=== PATIENT | female | born 1945 | race Caucasian/White ===

== ENCOUNTER 2017-07-29 12:35 | Inpatient (IN) | payer MEDICARE, MEDICAID ==
[~2017-07-29] VITALS: Ht 165.1 cm; Wt 69.0 kg
[~2017-07-29 12:35] MED LIST: ALEN70TA3 PO; FLUT1DIS4 INH; GABA-530 PO; HYDR-569 PO; HYDR12.5 PO; LEVA15HF4 INH; LOSA50TA3 PO; NYSPWD TP; QUET50TA PO; SUMA25TA35 PO
[2017-07-29] MEDS ORDERED: normal saline 1000ML IV soln IVB ONE ×2 (15:35)
[2017-07-29] MEDS ORDERED: famotidine/PF 10 mg/ml inj IV ONE (15:35)
[2017-07-29 16:08] LABS: BASOPHILS % (AUTO) 0 % (0-1); EOSINOPHILS # (AUTO) 0.4 X10'3 (0-0.9); EOSINOPHILS % (AUTO) 1.7 % (0-6); HEMATOCRIT 43.1 % (35.0-45.0); HEMOGLOBIN 14.8 g/dl (12.0-16.0); LYMPHOCYTES # (AUTO) 1.1 X10'3 (1.1-4.8); LYMPHOCYTES % (AUTO) 4.3 % (21-51); MEAN CORPUSCULAR HEMOGLOBIN 30.5 PG (27.0-31.0); MEAN CORPUSCULAR HGB CONC 34.2 % (33.0-36.5); MEAN CORPUSCULAR VOLUME 89.1 FL (78-98); MEAN PLATELET VOLUME 7.2 FL (7.4-10.4); MONOCYTES # (AUTO) 0.3 X10'3 (0-0.9); MONOCYTES % (AUTO) 1.3 % (2-12); NEUTROPHILS # (AUTO) 24.5 X10'3 (1.8-7.7); NEUTROPHILS % (AUTO) 92.7 % (42-75); PLATELET COUNT 380 X10'3 (140-440); RED BLOOD COUNT 4.84 X10'6 (4.20-5.60); RED CELL DISTRIBUTION WIDTH 14.3 % (11.5-14.5)
[2017-07-29 16:14] LABS: WHITE BLOOD COUNT 26.5 X10'3 (4.5-11.0)
[2017-07-29 16:19] LABS: PARTIAL THROMBOPLASTIN TIME 23 SECONDS (22-32); PROTHROMBIN TIME 10.7 SECONDS (9.0-12.0)
[2017-07-29 16:25] LABS: ALANINE AMINOTRANSFERASE 21 U/L (12-78); ALBUMIN 3.7 G/DL (3.4-5.0); ALKALINE PHOSPHATASE 92 IU/L (46-116); ANION GAP 13 (8-16); ASPARTATE AMINO TRANSFERASE 13 U/L (10-37); BILIRUBIN,TOTAL 0.8 MG/DL (0.1-1.0); BLOOD UREA NITROGEN 60 MG/DL (7-18); BUN/CREATININE RATIO 25.2 (6.6-38.0); CALCIUM 9.1 MG/DL (8.5-10.1); CHLORIDE 99 MMOL/L (99-107); CREATININE 2.38 MG/DL (0.40-0.90); GLUCOSE 144 MG/DL (70-104); POTASSIUM 3.9 MMOL/L (3.5-5.1); SODIUM 138 MMOL/L (135-145); TOTAL CARBON DIOXIDE 25.6 MMOL/L (24-32); TOTAL PROTEIN 7.3 G/DL (6.4-8.2); eGFR 20 ML/MIN
[2017-07-29] MEDS ORDERED: metroNIDAZOLE-Flagyl 500mg/NS 100 ML IV ONE (16:30)
[2017-07-29] MEDS ORDERED: levoFLOXACIN-Levaquin 500mg/D5 100 ML IV ONE (16:30)
[2017-07-29 16:43] LABS: PLATELET ESTIMATE NORMAL; TOTAL CELLS COUNTED 100; TOXIC GRANULATION 1+; TOXIC VACUOLATION 1+
[2017-07-29] MEDS ORDERED: LOSA50TA37 PO (17:33)
[2017-07-29] MEDS ORDERED: QUET50TA76 PO (17:33)
[2017-07-29] MEDS ORDERED: PROC-8 PO (17:33)
[2017-07-29] MEDS ORDERED: QUET50TA22 PO (17:33)
[2017-07-29] MEDS ORDERED: ALEN70TA15 PO (17:33)
[2017-07-29] MEDS ORDERED: LOSA100T28 PO (17:33)
[2017-07-29] MEDS ORDERED: acetaminophen 650mg rectal suppository RC PRN (22:15)
[2017-07-29] MEDS ORDERED: mag hydrox/Alum hydrox/simeth 30ml oral suspension PO PRN (22:15)
[2017-07-29] MEDS ORDERED: magnesium hydroxide 30ml (MOM) UD suspension PO PRN (22:15)
[2017-07-29] MEDS ORDERED: non-formulary drug (Levalbuterol Tartrate (Xopenex Hfa) 2 PUFFS) INH SCH (22:15)
[2017-07-29] MEDS ORDERED: non-formulary drug (Alendronate Sodium (Fosamax) 1 TAB) PO SCH (22:15)
[2017-07-29] MEDS ORDERED: diphenhydrAMINE 25mg capsule PO PRN (22:15)
[2017-07-29] MEDS ORDERED: acetaminophen 325mg tablet PO PRN (22:15)
[2017-07-29] MEDS ORDERED: bisacodyl 10mg suppository rectal RC PRN (22:15)
[2017-07-29] MEDS ORDERED: morphine 2 MG/ML inj. syringe IV PRN ×2 (22:15)
[2017-07-29] MEDS ORDERED: diphenhydrAMINE 50 mg/ml inj IV PRN (22:15)
[2017-07-29] MEDS ORDERED: ondansetron/PF 4mg/2ml inj IV PRN (22:15)
[2017-07-29] MEDS ORDERED: albuterol 2.5 MG/3 ML nebule NEB PRN (22:25)
[2017-07-29] MEDS: normal saline 1000ml 1,000 ML IV SCH (22:53)
[2017-07-29] MEDS: nicotine 21mg patch - 24 hr TD SCH (22:54)
[2017-07-29] MEDS: HYDROcodone/acetaminophen 10/325mg tab PO PRN (22:55)
[2017-07-29 23:00] LABS: LIPASE 130 U/L (73-393); MAGNESIUM 2.6 MG/DL (1.5-2.4); PHOSPHORUS 4.5 MG/DL (2.3-4.5)
[2017-07-30] MEDS: temazepam 15mg capsule PO PRN (02:11)
[2017-07-30 03:05] VITALS: BP 104/71
[2017-07-30] MEDS: HYDROcodone/acetaminophen 10/325mg tab PO PRN ×2 (05:25→13:04)
[2017-07-30 06:00] VITALS: BP 114/60
[2017-07-30 06:32] LABS: BASOPHILS % (AUTO) 0.2 % (0-1); EOSINOPHILS # (AUTO) 0.5 X10'3 (0-0.9); EOSINOPHILS % (AUTO) 2.2 % (0-6); HEMATOCRIT 38.4 % (35.0-45.0); LYMPHOCYTES # (AUTO) 4.1 X10'3 (1.1-4.8); LYMPHOCYTES % (AUTO) 18.7 % (21-51); MEAN CORPUSCULAR HEMOGLOBIN 30.6 PG (27.0-31.0); MEAN CORPUSCULAR HGB CONC 33.9 % (33.0-36.5); MEAN CORPUSCULAR VOLUME 90.1 FL (78-98); MEAN PLATELET VOLUME 7.6 FL (7.4-10.4); MONOCYTES # (AUTO) 1.6 X10'3 (0-0.9); MONOCYTES % (AUTO) 7.1 % (2-12); NEUTROPHILS # (AUTO) 15.9 X10'3 (1.8-7.7); NEUTROPHILS % (AUTO) 71.8 % (42-75); PLATELET COUNT 310 X10'3 (140-440); RED BLOOD COUNT 4.26 X10'6 (4.20-5.60); RED CELL DISTRIBUTION WIDTH 14.4 % (11.5-14.5); WHITE BLOOD COUNT 22.1 X10'3 (4.5-11.0)
[2017-07-30 06:38] LABS: ALANINE AMINOTRANSFERASE 23 U/L (12-78); ALBUMIN/GLOBULIN RATIO 0.9 (1.1-1.5); ALKALINE PHOSPHATASE 85 IU/L (46-116); ANION GAP 9 (8-16); ASPARTATE AMINO TRANSFERASE 13 U/L (10-37); BILIRUBIN,TOTAL 0.6 MG/DL (0.1-1.0); BLOOD UREA NITROGEN 36 MG/DL (7-18); BUN/CREATININE RATIO 27.9 (6.6-38.0); CALCIUM 8.4 MG/DL (8.5-10.1); CHLORIDE 106 MMOL/L (99-107); CREATININE 1.29 MG/DL (0.40-0.90); GLUCOSE 77 MG/DL (70-104); POTASSIUM 3.6 MMOL/L (3.5-5.1); SODIUM 143 MMOL/L (135-145); TOTAL CARBON DIOXIDE 27.8 MMOL/L (24-32); TOTAL PROTEIN 6.2 G/DL (6.4-8.2); eGFR 41 ML/MIN
[2017-07-30] MEDS: metroNIDAZOLE-Flagyl 500mg/NS 100 ML IV SCH (07:46)
[2017-07-30] MEDS: pantoprazole 40 MG vial IV SCH (07:46)
[2017-07-30] MEDS: docusate sod 100mg capsule PO SCH ×2 (07:46→20:39)
[2017-07-30] MEDS: losartan 50mg tablet PO SCH (07:46)
[2017-07-30] MEDS: nicotine 21mg patch - 24 hr TD SCH (07:47)
[2017-07-30] MEDS ORDERED: non-formulary drug (Fluticasone/Salmeterol (Advair 250-50 Diskus) 1 PUFFS) INH SCH (08:00)
[2017-07-30] MEDS ORDERED: non-formulary drug (Losartan Potassium 100 MG) PO SCH (08:00)
[2017-07-30 10:00] VITALS: BP 98/66
[2017-07-30] MEDS: normal saline 1000ml 1,000 ML IV SCH ×2 (12:52→18:14)
[2017-07-30] MEDS: gabapentin 300mg capsule PO PRN (13:03)
[2017-07-30 15:29] LABS: OCCULT BLOOD STOOL NEGATIVE (Neg)
[2017-07-30 18:00] VITALS: BP 98/59
[2017-07-30] MEDS: quetiapine 100mg tablet PO SCH (20:38)
[2017-07-30] MEDS: QUETIAPINE 50 MG TAB.SR.24H PO SCH (20:39)
[2017-07-30] MEDS: HYDROcodone/acetaminophen 5mg/325mg tablet PO PRN (20:39)
[2017-07-30] MEDS: nystatin 15 GM powder TP SCH (20:40)
[2017-07-30] MEDS ORDERED: QUETIAPINE FUMARATE 100 MG PO SCH (21:00)
[2017-07-30 21:49] VITALS: BP 191/119
[2017-07-30 22:00] VITALS: BP 134/73
[2017-07-31] MEDS: temazepam 15mg capsule PO PRN ×2 (00:12→22:53)
[2017-07-31] MEDS: normal saline 1000ml 1,000 ML IV SCH (01:07)
[2017-07-31 05:32] LABS: BASOPHILS # (AUTO) 0.1 X10'3 (0-0.2); BASOPHILS % (AUTO) 0.7 % (0-1); EOSINOPHILS # (AUTO) 0.3 X10'3 (0-0.9); HEMATOCRIT 34.7 % (35.0-45.0); HEMOGLOBIN 11.8 g/dl (12.0-16.0); LYMPHOCYTES # (AUTO) 3.8 X10'3 (1.1-4.8); LYMPHOCYTES % (AUTO) 33.3 % (21-51); MEAN CORPUSCULAR HEMOGLOBIN 30.6 PG (27.0-31.0); MEAN CORPUSCULAR HGB CONC 34.1 % (33.0-36.5); MEAN CORPUSCULAR VOLUME 89.7 FL (78-98); MEAN PLATELET VOLUME 7.3 FL (7.4-10.4); MONOCYTES # (AUTO) 0.9 X10'3 (0-0.9); MONOCYTES % (AUTO) 7.8 % (2-12); NEUTROPHILS # (AUTO) 6.2 X10'3 (1.8-7.7); NEUTROPHILS % (AUTO) 55.2 % (42-75); PLATELET COUNT 271 X10'3 (140-440); RED BLOOD COUNT 3.87 X10'6 (4.20-5.60); RED CELL DISTRIBUTION WIDTH 14.6 % (11.5-14.5); WHITE BLOOD COUNT 11.3 X10'3 (4.5-11.0)
[2017-07-31 05:52] LABS: ALANINE AMINOTRANSFERASE 15 U/L (12-78); ALBUMIN 2.5 G/DL (3.4-5.0); ALBUMIN/GLOBULIN RATIO 0.9 (1.1-1.5); ALKALINE PHOSPHATASE 66 IU/L (46-116); ANION GAP 7 (8-16); ASPARTATE AMINO TRANSFERASE 9 U/L (10-37); BILIRUBIN,TOTAL 0.4 MG/DL (0.1-1.0); BLOOD UREA NITROGEN 18 MG/DL (7-18); BUN/CREATININE RATIO 19.4 (6.6-38.0); CALCIUM 8.4 MG/DL (8.5-10.1); CHLORIDE 111 MMOL/L (99-107); CREATININE 0.93 MG/DL (0.40-0.90); GLUCOSE 93 MG/DL (70-104); MAGNESIUM 1.7 MG/DL (1.5-2.4); PHOSPHORUS 3.1 MG/DL (2.3-4.5); SODIUM 146 MMOL/L (135-145); TOTAL CARBON DIOXIDE 27.9 MMOL/L (24-32); TOTAL PROTEIN 5.2 G/DL (6.4-8.2); eGFR 59 ML/MIN
[2017-07-31 06:00] VITALS: BP 107/54
[2017-07-31] MEDS: losartan 50mg tablet PO SCH (08:00)
[2017-07-31] MEDS ORDERED: levoFLOXACIN-Levaquin 500mg/D5 100 ML IV SCH (08:00)
[2017-07-31] MEDS: docusate sod 100mg capsule PO SCH ×2 (08:00→20:13)
[2017-07-31] MEDS: pantoprazole 40 MG vial IV SCH (08:18)
[2017-07-31] MEDS: nicotine 21mg patch - 24 hr TD SCH (08:19)
[2017-07-31] MEDS: metroNIDAZOLE-Flagyl 500mg/NS 100 ML IV SCH (08:20)
[2017-07-31] MEDS: nystatin 15 GM powder TP SCH ×3 (08:21→20:14)
[2017-07-31] MEDS: HYDROcodone/acetaminophen 10/325mg tab PO PRN ×2 (08:38→13:55)
[2017-07-31] MEDS: gabapentin 300mg capsule PO PRN ×2 (08:38→13:55)
[2017-07-31 12:52] VITALS: BP 107/54
[2017-07-31] MEDS: SUMAtriptan 25 MG tablet PO PRN ×2 (16:22→22:50)
[2017-07-31 18:00] VITALS: BP 152/74
[2017-07-31] MEDS: QUETIAPINE 50 MG TAB.SR.24H PO SCH (20:12)
[2017-07-31] MEDS: quetiapine 100mg tablet PO SCH (20:12)
[2017-07-31] MEDS: HYDROcodone/acetaminophen 5mg/325mg tablet PO PRN (20:19)
[2017-07-31 22:00] VITALS: BP 127/78
[2017-08-01 06:00] VITALS: BP 142/70
[2017-08-01 06:23] LABS: BASOPHILS # (AUTO) 0.1 X10'3 (0-0.2); BASOPHILS % (AUTO) 0.4 % (0-1); EOSINOPHILS # (AUTO) 0.3 X10'3 (0-0.9); EOSINOPHILS % (AUTO) 2.1 % (0-6); HEMATOCRIT 38.9 % (35.0-45.0); HEMOGLOBIN 13.4 g/dl (12.0-16.0); LYMPHOCYTES # (AUTO) 3.7 X10'3 (1.1-4.8); LYMPHOCYTES % (AUTO) 27.9 % (21-51); MEAN CORPUSCULAR HEMOGLOBIN 30.5 PG (27.0-31.0); MEAN CORPUSCULAR HGB CONC 34.4 % (33.0-36.5); MEAN CORPUSCULAR VOLUME 88.7 FL (78-98); MEAN PLATELET VOLUME 7.2 FL (7.4-10.4); MONOCYTES # (AUTO) 1.4 X10'3 (0-0.9); MONOCYTES % (AUTO) 10.1 % (2-12); NEUTROPHILS % (AUTO) 59.5 % (42-75); PLATELET COUNT 299 X10'3 (140-440); RED BLOOD COUNT 4.38 X10'6 (4.20-5.60); RED CELL DISTRIBUTION WIDTH 14.6 % (11.5-14.5); WHITE BLOOD COUNT 13.4 X10'3 (4.5-11.0)
[2017-08-01 07:12] LABS: ALANINE AMINOTRANSFERASE 23 U/L (12-78); ALBUMIN 2.8 G/DL (3.4-5.0); ALBUMIN/GLOBULIN RATIO 0.9 (1.1-1.5); ALKALINE PHOSPHATASE 74 IU/L (46-116); ANION GAP 8 (8-16); ASPARTATE AMINO TRANSFERASE 11 U/L (10-37); BILIRUBIN,TOTAL 0.5 MG/DL (0.1-1.0); BLOOD UREA NITROGEN 14 MG/DL (7-18); BUN/CREATININE RATIO 14.9 (6.6-38.0); CALCIUM 8.7 MG/DL (8.5-10.1); CHLORIDE 108 MMOL/L (99-107); CREATININE 0.94 MG/DL (0.40-0.90); GLUCOSE 92 MG/DL (70-104); POTASSIUM 4.2 MMOL/L (3.5-5.1); SODIUM 144 MMOL/L (135-145); TOTAL PROTEIN 5.9 G/DL (6.4-8.2); eGFR 59 ML/MIN
[2017-08-01] MEDS: metroNIDAZOLE-Flagyl 500mg/NS 100 ML IV SCH ×2 (08:01→12:01)
[2017-08-01] MEDS: pantoprazole 40 MG vial IV SCH ×2 (08:02→12:02)
[2017-08-01] MEDS: docusate sod 100mg capsule PO SCH (08:02)
[2017-08-01] MEDS: losartan 50mg tablet PO SCH (08:02)
[2017-08-01] MEDS: nystatin 15 GM powder TP SCH (08:02)
[2017-08-01] MEDS: nicotine 21mg patch - 24 hr TD SCH (08:02)
[2017-08-01] MEDS ORDERED: METR500T PO (11:53)
[2017-08-01] MEDS ORDERED: OMEP20CA10 PO (11:53)
[2017-08-01] MEDS ORDERED: LOSA50TA37 PO (11:53)
[2017-08-01] MEDS ORDERED: NICO-687 TD (11:53)
[2017-08-01] MEDS ORDERED: LEVO500T89 PO (11:53)
[2017-08-01 13:09] VITALS: BP 127/68
== END 2017-08-01 13:30 | disposition home or self-care (01) | DRG 871 ==
LOC: ER 12:36 → ED HOLD 22:14 → ORTHO 4S 07-30 03:04
PROVIDERS: ADMIT Family Medicine; ATTEND Family Medicine
DX: A41.9 Sepsis, unspecified organism (principal); J18.1 Lobar pneumonia, unspecified organism; N17.9 Acute kidney failure, unspecified; E87.0 Hyperosmolality and hypernatremia; E87.2 Acidosis; K92.2 Gastrointestinal hemorrhage, unspecified; E86.1 Hypovolemia; J44.0 Chronic obstructive pulmonary disease with (acute) lower respiratory infection; A09 Infectious gastroenteritis and colitis, unspecified; G89.29 Other chronic pain; I10 Essential (primary) hypertension; K43.9 Ventral hernia without obstruction or gangrene; M43.17 Spondylolisthesis, lumbosacral region; B19.20 Unspecified viral hepatitis C without hepatic coma; F32.9 Major depressive disorder, single episode, unspecified; F41.9 Anxiety disorder, unspecified; F12.90 Cannabis use, unspecified, uncomplicated; F17.210 Nicotine dependence, cigarettes, uncomplicated; Z79.899 Other long term (current) drug therapy; Z88.6 Allergy status to analgesic agent; Z88.8 Allergy status to other drugs, medicaments and biological substances; Z85.43 Personal history of malignant neoplasm of ovary
CPT/HCPCS: 36415; 71046; 74176; 80053; 82272; 83605; 83690; 83735; 83880; 84100; 84145; 84443; 85025; 85610; 85730; 87040; 87045; 87046; 87070; 89055; 93005; 94640; 94760; 96361; 96365; 96366; 96368; 96375; 99285; A4315; A6258; C9113; J1956; J3490; J7030

== ENCOUNTER 2017-11-05 14:20 | Outpatient (CLI) | payer MEDICARE, MEDICAID ==
[~2017-11-05 14:20] MED LIST changes: -HYDR-569 PO; +LOSA100T28 PO; -LOSA50TA3 PO; +LOSA50TA37 PO; +NICO-687 TD; +OMEP20CA10 PO; +PROC-8 PO; -QUET50TA PO; +QUET50TA22 PO; +QUET50TA76 PO
== END 2017-11-05 15:35 | disposition home or self-care (01) ==
LOC: ORTHO 14:20
PROVIDERS: ATTEND Nurse Practitioner Family
DX: S52.501D Unspecified fracture of the lower end of right radius, subsequent encounter for closed fracture with routine healing (principal); S52.611D Displaced fracture of right ulna styloid process, subsequent encounter for closed fracture with routine healing; I10 Essential (primary) hypertension; E78.00 Pure hypercholesterolemia, unspecified; F17.210 Nicotine dependence, cigarettes, uncomplicated; F32.9 Major depressive disorder, single episode, unspecified; F41.9 Anxiety disorder, unspecified; J44.9 Chronic obstructive pulmonary disease, unspecified; Z88.5 Allergy status to narcotic agent; X58.XXXD Exposure to other specified factors, subsequent encounter
CPT/HCPCS: 73100; 99213

== ENCOUNTER 2017-12-10 14:51 | Outpatient (CLI) | payer MEDICARE, MEDICAID ==
[2017-12-10 15:15] VITALS: BP 95/59
== END 2017-12-10 15:35 | disposition home or self-care (01) ==
LOC: ORTHO 14:51
PROVIDERS: ATTEND Nurse Practitioner Family
DX: M25.641 Stiffness of right hand, not elsewhere classified (principal); I10 Essential (primary) hypertension; E78.00 Pure hypercholesterolemia, unspecified; J44.9 Chronic obstructive pulmonary disease, unspecified; F41.9 Anxiety disorder, unspecified; F32.9 Major depressive disorder, single episode, unspecified; Z88.8 Allergy status to other drugs, medicaments and biological substances; Z87.891 Personal history of nicotine dependence
CPT/HCPCS: 99213

== ENCOUNTER 2018-11-14 08:03 | Emergency (ER) | payer MEDICARE, MEDICAID ==
[~2018-11-14] VITALS: Ht 165.1 cm; Wt 68.2 kg
[~2018-11-14 08:03] MED LIST changes: -LOSA100T28 PO; +LOSA100T57 PO; -LOSA50TA37 PO; +LOSA50TA64 PO; -OMEP20CA10 PO; +OMEP20CA11 PO; -QUET50TA76 PO; +QUET50TA79 PO
[2018-11-14] MEDS ORDERED: ketorolac trometh inj. 60 MG/2 ML VIAL IM ONE (09:05)
[2018-11-14] MEDS ORDERED: TRAM50TA2 PO (10:22)
[2018-11-14] MEDS ORDERED: CELE-193 PO (10:22)
[2018-11-14 10:39] VITALS: BP 151/68
== END 2018-11-14 10:40 | disposition home or self-care (01) ==
LOC: ER 08:04
DX: T16.1XXA Foreign body in right ear, initial encounter (principal); M25.562 Pain in left knee; J45.909 Unspecified asthma, uncomplicated; Z88.5 Allergy status to narcotic agent; Z88.8 Allergy status to other drugs, medicaments and biological substances; Z79.899 Other long term (current) drug therapy; W45.8XXA Other foreign body or object entering through skin, initial encounter; Y93.89 Activity, other specified; Y92.89 Other specified places as the place of occurrence of the external cause; Y99.8 Other external cause status
CPT/HCPCS: 69200; 73564; 96372; 99284; J1885

== ENCOUNTER 2021-12-04 10:57 | Emergency (ER) | payer BC, MEDICAID ==
[~2021-12-04] VITALS: Ht 165.1 cm; Wt 54.5 kg
[~2021-12-04 10:57] MED LIST changes: +BUSP5TAB3 PO; +CELE-193 PO; +CHOL200016 PO; +HYDR-3686 PO; -HYDR12.5 PO; +IPRA3AMP9 NEB; -LOSA100T57 PO; -LOSA50TA64 PO; -NICO-687 TD; +NICO-687 TOP; -OMEP20CA11 PO; -PROC-8 PO; -QUET50TA22 PO; +QUET50TA24 PO; -QUET50TA79 PO
[2021-12-04 12:17] LABS: BASOPHILS # (AUTO) 0.1 X10'3 (0-0.2); BASOPHILS % (AUTO) 0.8 % (0-1); EOSINOPHILS # (AUTO) 0.1 X10'3 (0-0.9); HEMATOCRIT 42.7 % (35.0-45.0); LYMPHOCYTES # (AUTO) 2.5 X10'3 (1.1-4.8); LYMPHOCYTES % (AUTO) 23.8 % (21-51); MEAN CORPUSCULAR HEMOGLOBIN 28.7 PG (27.0-31.0); MEAN CORPUSCULAR HGB CONC 32.8 g/dL (33.0-36.5); MEAN CORPUSCULAR VOLUME 87.6 FL (78-98); MEAN PLATELET VOLUME 6.8 FL (7.4-10.4); MONOCYTES # (AUTO) 0.9 X10'3 (0-0.9); MONOCYTES % (AUTO) 8.2 % (2-12); NEUTROPHILS % (AUTO) 66.2 % (42-75); PLATELET COUNT 390 X10'3 (140-440); RED BLOOD COUNT 4.87 X10'6 (4.20-5.60); RED CELL DISTRIBUTION WIDTH 14.3 % (11.5-14.5); WHITE BLOOD COUNT 10.6 X10'3 (4.5-11.0)
[2021-12-04 12:52] LABS: ALANINE AMINOTRANSFERASE 16 U/L (12-78); ALBUMIN/GLOBULIN RATIO 1.1 (1.1-1.5); ALKALINE PHOSPHATASE 102 IU/L (46-116); ANION GAP 11 (8-16); ASPARTATE AMINO TRANSFERASE 12 U/L (10-37); BILIRUBIN,TOTAL 0.5 MG/DL (0.1-1.0); BLOOD UREA NITROGEN 18 MG/DL (7-18); BUN/CREATININE RATIO 23.4 (6.6-38.0); CALCIUM 9.1 MG/DL (8.5-10.1); CHLORIDE 105 MMOL/L (99-107); CREATININE 0.77 MG/DL (0.40-0.90); GLUCOSE 103 MG/DL (70-104); POTASSIUM 4.3 MMOL/L (3.5-5.1); SODIUM 142 MMOL/L (135-145); TOTAL PROTEIN 7.5 G/DL (6.4-8.2); eGFR 73 ML/MIN
[2021-12-04] MEDS ORDERED: gabapentin 400mg capsule PO STA (14:28)
[2021-12-04] MEDS ORDERED: GABA300C PO (14:40)
[2021-12-04 14:58] VITALS: BP 150/104
== END 2021-12-04 15:02 | disposition home or self-care (01) ==
LOC: ER 10:57
DX: R07.89 Other chest pain (principal); G89.4 Chronic pain syndrome; I10 Essential (primary) hypertension; J45.909 Unspecified asthma, uncomplicated; F41.9 Anxiety disorder, unspecified; F32.A Depression, unspecified; Z86.19 Personal history of other infectious and parasitic diseases; Z98.890 Other specified postprocedural states; Z85.43 Personal history of malignant neoplasm of ovary; Z72.89 Other problems related to lifestyle; Z88.5 Allergy status to narcotic agent; Z88.8 Allergy status to other drugs, medicaments and biological substances; Z79.899 Other long term (current) drug therapy
CPT/HCPCS: 36415; 71045; 80053; 83880; 84484; 85025; 93005; 99285

== ENCOUNTER 2024-07-06 13:20 | Emergency (ER) | payer BC, MEDICAID ==
[~2024-07-06] VITALS: Ht 165.1 cm; Wt 55.0 kg
[~2024-07-06 13:20] MED LIST changes: +GABA300C PO; -LEVA15HF4 INH; +LEVA15HF9 INH
[2024-07-06 13:44] VITALS: BP 180/73; PULSE 66; RESP 16; TEMP 98.3; O2SAT 97
[2024-07-06] MEDS ORDERED: HYDR-3965 PO (14:57)
== END 2024-07-06 15:24 | disposition home or self-care (01) ==
LOC: ER 13:21
DX: R07.89 Other chest pain (principal); J45.909 Unspecified asthma, uncomplicated; F32.A Depression, unspecified; F41.9 Anxiety disorder, unspecified; Z85.43 Personal history of malignant neoplasm of ovary; F10.90 Alcohol use, unspecified, uncomplicated; Z88.5 Allergy status to narcotic agent; Z98.890 Other specified postprocedural states; Y90.9 Presence of alcohol in blood, level not specified
CPT/HCPCS: 71045; 99283

== ENCOUNTER 2024-12-14 05:25 | Inpatient (IN) | payer BC, MEDICAID ==
[~2024-12-14] VITALS: Ht 165.1 cm; Wt 64.5 kg
[2024-12-14] VITALS (15 sets, daily range): BP systolic 161–196; BP diastolic 63–85; PULSE 67–88; RESP 16–20; TEMP 96.5–97.3; O2SAT 90–97
--- NOTE | 2024-12-14 05:46 | ELECTROCARDIOGRAPH REPORT ---
[facility] Test Date: 2024-12-14 Test Time: 05:45:08 Pat Name: SNEHA GUNTER Department: [facility]- Patient ID: [facility]-[id number] Room: Gender: F Grand Scribe: : 1945 Requested By: DEVAUGHN RANDHAWA Order Number: [id number] Reading MD: Measurements Intervals [place] Rate: 61 P: 77 NV: 183 QRS: 12 QRSD: 86 T: 71 QT: 470 QTc: 474 Interpretive Statements Sinus rhythm LVH with secondary repolarization abnormality Please click the below link to view image of tracing.
--- NOTE | 2024-12-14 05:50 | Physician Documentation ---
History of Present Illness ~ Chief Complaint: Chest Wall Pain Stated Complaint: CP Time Seen by MD: 05:49 Primary Medical Doctor: [facility] Patient presents to the emergency room for evaluation of chest pain. Onset 2 hours before arrival of the emergency room. Went to sleep last night with no chest pain and then woke up this morning with it. She reports she thinks she may have had a stress test previously that has unsure of when. She does have a primary care provider but no instructional services specialist. She has had nothing for the pain but it ambulance to give nitroglycerin and aspirin without effect. Pain exacerbated with deep breaths Medication Reconciliation Allergies: Coded Allergies: chlorpromazine HCl (Verified Allergy, Unknown, 09/04/16) codeine (Verified Allergy, Unknown, 09/04/16) Scheduled Alendronate Sodium (Fosamax), 1 TAB PO Q7D, (Reported) Buspirone Hcl* (Buspar*), 1 TAB PO TID, (Reported) Celecoxib* (Celebrex*), 100 MG PO BID, (Reported) Cholecalciferol (Vitamin D3) (Vitamin D-3), 2,000 UNITS PO HS, (Reported) Fluticasone/Salmeterol (Advair 250-50 Diskus), 1 PUFFS INH Q12H, (Reported) Gabapentin (Gabapentin), 3 CAP PO TID, (Reported) Gabapentin (Neurontin), 1 CAP PO Q8H Ipratropium/Albuterol Sulfate (IPRAT-ALBUT 0.5-3(2.5) MG/3 ML nebule), 3 ML NEB TID Levalbuterol Tartrate (Xopenex Hfa), 2 PUFFS INH Q4HPRN, (Reported) Nicotine 21 MG Patch* (Habitrol 21 MG Patch*), 1 PATCH TOP DAILY, (Reported) Nystatin (NYSTOP powder), 1 APPLIC TP BID, (Reported) Quetiapine Fumarate (Quetiapine Fumarate), 50 MG PO HS, (Reported) Scheduled PRN Hydroxyzine Hcl* (Atarax*), 1 TAB PO Q8H PRN for anxiety, (Reported) Sumatriptan Succinate* (Imitrex Tab*), 4 TAB PO PRN PRN for headache, (Reported) Past Medical History Past Medical History: Asthma, Bronchitis, Bowel Obstruction, Constipation, Hepatitis C, Ovarian Cancer, Anxiety, Depression Past Surgical History: abdominal surgery Alcohol Use: Sober Drug Use: none Lives with: Other Lives In: Home Occupation: disabled Review of Systems ROS All review of systems negative except as per HPI Physical Exam Vital Signs: Temperature: 98.7, Source: Oral, Heart Rate: 61, Respiratory Rate: 16, BP: 186/88, Pulse Oximetry: 96, Weight: 64.540 Physical Exam General: Patient is awake, alert, oriented x4 in no acute distress Head: Normocephalic and atraumatic. Eyes: Conjunctival normal. EOMI. PERRL. ENT: Mucous membranes moist. Neck: Supple, trachea is midline. Chest: Clear to auscultation bilaterally without rales, rhonchi, or wheezes. There is no accessory muscle use or retractions. Cardiac: RRR without murmurs, gallops, or rubs. Extremities: Normal strength. Normal range of motion. No deformities or edema. No calf tenderness to palpation Progress Results/Orders Results/Orders Orders - BRIDGER CASTELLANOS MD Chest,Single View (12/14/24 05:37) Monitor (12/14/24 05:37) Saline Lock (12/14/24 05:37) Oxygen (12/14/24 05:37) Completed Orders - BRIDGER CASTELLANOS MD Chest,Single View (12/14/24 05:37) Cbc/Diff (12/14/24 05:37) BMP (12/14/24 05:37) PBNP (12/14/24 05:37) Electrocardiogram (12/14/24 05:37) Hs Troponin I W Calculations (12/14/24 05:37) Hs Troponin I W Calculations (12/14/24 07:37) Hs Troponin I W Calculations (12/14/24 08:37) Ondansetron Inj. (Zofran 4mg/2ml Vial) (12/14/24 05:55) Fentanyl/Pf (Fentanyl 0.05 Mg/Ml Syringe (12/14/24 05:55) Acetaminophen 325mg Tablet (Tylenol Tabl (12/14/24 05:55) D-Dimer (12/14/24 06:02) Vital Signs 12/14/24 12/14/24 12/14/24 12/14/24 05:26 06:29 06:44 06:56 Temp 98.7 98.7 Pulse 61 62 Resp 16 16 20 20 B/P (MAP) 186/88 79/75 (76) Pulse Ox 96 97 O2 Flow Rate 0 12/14/24 08:10 Resp 16 Laboratory Tests Test 12/14/24 06:54 White Blood Count 15.6 H Red Blood Count 4.14 L Hemoglobin 12.1 Hematocrit 36.5 Mean Corpuscular Volume 88.2 Mean Corpuscular Hemoglobin 29.3 Mean Corpuscular Hemoglobin Concent 33.2 Red Cell Distribution Width 15.7 H Platelet Count 344 Mean Platelet Volume 6.9 L Neutrophils (%) (Auto) 82.3 H Lymphocytes (%) (Auto) 8.1 L Monocytes (%) (Auto) 8.1 Eosinophils (%) (Auto) 0.9 Basophils (%) (Auto) 0.6 Neutrophils # (Auto) 12.8 H Lymphocytes # (Auto) 1.3 Monocytes # (Auto) 1.3 H Eosinophils # (Auto) 0.1 Basophils # (Auto) 0.1 CBC Comment D-Dimer 0.49 D-Dimer Comment Sodium Level 143 Potassium Level 4.3 Chloride Level 108 H Carbon Dioxide Level 28.2 Anion Gap 7 L Blood Urea Nitrogen 11 Creatinine 0.85 Estimated GFR/1.73 m2 65 BUN/Creatinine Ratio 12.9 Glucose Level 123 H Calcium Level 8.6 Troponin I High Sensitivity 12 Pro-B-Type Natriuretic Peptide 1336 H Albumin 3.4 Chemistry Comments EKG/XRAY/CT/US/VASC/MRI EKG : Additional Comment EKG interpreted by myself shows time of 0545, rate 61, sinus rhythm, normal axis, no ST changes Chest X-Ray : Additional Comments Chest x-ray interpreted by myself shows no effusions or infiltrates and cardiac silhouette is unchanged compared to previous Heart Score: Heart Score Response (Comments) Value History Moderate Suspicious 1 EKG Repolarization Disturb 1 Age >65 2 Risk Factors 1 or 2 risk factors 1 Troponin Normal limit 0 Total 5 Medical Decision Making Findings Patient presents to the emergency room with chest pain as per HPI. Differentials include but are not limited to ACS, pulmonary embolism, musculoskeletal pain, pneumothorax therefore emergent labs and imaging indicated. Additional note by Kenan Kelly DO: I took over the care of this patient from previous physician. I reviewed any previous notes available, obtain my own history, review of systems and physical examination was performed by myself. Facility Status: ED Holds, RME process The plan was discussed with the patient, who demonstrates clear understanding of the plan and is in agreement with the plan unless otherwise noted in the chart. All questions have been answered, all concerns were addressed unless otherwise documented. I was available throughout their ED stay for frequent reassessment and questions. Differential Diagnoses (considered and possible or likely): [Differential diagnosis considered includes chest wall pain, pleurisy, pneumonia, pulmonary embolus, GERD, esophagitis, gastritis, anxiety, stress reaction, costochondritis, acute coronary syndrome, aortic dissection, pericarditis, myocarditis, or pneumothorax.] ??Differential Diagnoses (considered and unlikely, not requiring evaluation currently): [Aortic/great vessels dissection was considered but it is unlikely based on absence of ripping, tearing, migratory chest pain, absence of syncope or focal neurologic deficits, physical examination indicating equal and symmetri c pulses.] MDM Data Please see [facility] for the following: Independent Historians and external Records Review. Historian: [Patient] Independent Historians: ?[Record review ] Medication Management: [Reviewed medication list] Social History and determinants: [Reviewed] Please see the body of the note for the following: Any independent interpretations of ECG, imaging studies. All vitals signs/haemodynamics, ordered tests were independently reviewed and interpreted by myself. Nursing triage complaint and vitals reviewed, additional nursing notes were reviewed as available and I agree unless otherwise noted or documented in contradiction in the chart Vital Signs: Independently reviewed Labs: Independently interpreted Imaging: Independently interpreted Old Medical Records: Independently reviewed, see [facility] for relevant summary and in formation Pulse Oximetry: [97%] interpreted as [normal on room air] by me [Endorsement Clerk: [Regular Rate, Regular rhythm, no ectopy, NSR] reviewed and interpreted by me] Additionally notably showing: [Hemodynamically stable. Laboratory workup notable for elevated BNP. Concerning for CHF exacerbation although patient denies history of CHF. Initial troponin is normal. Pain persists. D-dimer is borderline but negative and age adjusted normal.] Tests considered but not ordered include: [Stress test and an echo can be done on an inpatient basis] Social Determinants of Health Impact: Patient was evaluated in [facility] [place] to healthcare due to below par ratio of patient to medical providers. [] Comorbid Conditions Impacting Present Evaluation and Care/Treatment: [] Management Discussions with other Healthcare Providers: [Hospitalist regarding admission] Treatment and Disposition Medication Management (Given or considered): []. See EMR for details Consideration for Hospitalization/Escalation/Deescalation of Care: Admission for observation has been considered, and appears to be necessary for further workup of her chest pain ?ED Course:?[No clinical deterioration] ?Shared decision making:?[] Code status:?FULL Please see the full Electronic Medical Record for full details of nursing documentation, medications list, other records of complete past medical history and conditions, vital signs, laboratory studies, and any radiologic study interpretations by radiologists. Portions of this note were completed using Mir[employer] dictation software and as a result there may exist minor errors in spelling. I have reviewed elements of past family and social history and agree as included in note. Departure Disposition: ADMITTED INPATIENT Admitted to Inpatient Unit: to hospitalist Impression: Primary Impression: Acute chest pain Additional Impression: Elevated brain natriuretic peptide (BNP) level Referrals: NO PRIMARY CARE PROVIDER (PCP) Signature Scribe Signature: No scribe Attestation: The note accurately reflects work and decisions made by me.Bridger Castellanos MD 12/14/24 20:44 This note accurately reflects clinical decisions, work performed by myself, DO EDIS Cunningham JESSE G MD Dec 14, 2024 05:50 KENAN KELLY DO Dec 14, 2024 08:00
--- NOTE | 2024-12-14 05:56 | RADIOLOGY REPORT ---
CHEST RADIOGRAPH Indication: CP Technique: Single frontal view of the chest was obtained Comparison: DI CHEST,SINGLE VIEW on DOS: 07/06/24 FINDINGS: Lines and Tubes: None Lungs: No focal consolidation. Pleura: No effusion. No pneumothorax. Cardiomediastinal contours: Unremarkable Bones: No acute osseous abnormality. IMPRESSION: 1. No acute cardiopulmonary disease.
[2024-12-14] MEDS: ondansetron/PF 4mg/2ml inj IV ONE ×2 (06:55→21:21)
[2024-12-14] MEDS: fentaNYL/PF 50MCG/1 ML 2ML syringe IV ONE (06:56)
[2024-12-14 07:11] LABS: MEAN PLATELET VOLUME 6.9 FL (7.4-10.4); RED CELL DISTRIBUTION WIDTH 15.7 % (11.5-14.5)
[2024-12-14 07:31] LABS: CREATININE 0.85 MG/DL (0.40-0.90); PRO BRAIN NATRIURETIC PEPTIDE 1336 PG/ML (0-450); TOTAL CARBON DIOXIDE 28.2 MMOL/L (24-32); eCRCL 49 ML/MIN; eGFR 65 ML/MIN
[2024-12-14] MEDS ORDERED: potassium Cl 40MEQ/1/2NS 520ml 520 ML IV PRN (08:30)
[2024-12-14] MEDS ORDERED: magnesium sulf-water 4G/100mL 100 ML IV PRN (08:30)
[2024-12-14] MEDS ORDERED: potassium Cl 20 mEq SR tablet PO PRN ×2 (08:30)
[2024-12-14] MEDS ORDERED: magnesium sulf-water 2g/50mL 50 ML IV PRN (08:30)
[2024-12-14] MEDS ORDERED: magnesium Cl slow-release 64mg tablet PO PRN (08:30)
[2024-12-14] MEDS: normal saline 1000ml 1,000 ML IV SCH (09:15)
[2024-12-14] MEDS ORDERED: HYDROmorphone/PF 0.2 MG/ML SYRINGE IV PRN (09:45)
[2024-12-14] MEDS ORDERED: HYDROcodone/acetaminophen 5mg/325mg tablet PO PRN (09:45)
[2024-12-14] MEDS: pantoprazole 40mg Tablet.DR PO SCH (10:00)
[2024-12-14] MEDS: nicotine 14mg patch - 24hr TD SCH (10:00)
[2024-12-14] MEDS ORDERED: albuterol 2.5 MG/3 ML nebule NEB PRN (10:00)
[2024-12-14] MEDS ORDERED: aminophylline inj. 10 ML IV ONE (12:28)
[2024-12-14] MEDS: regadenoson 0.4mg/5ml syringe IV ONE (12:38)
[2024-12-14] MEDS: aminophylline 250mg/10ml inj. IV ONE (12:41)
--- NOTE | 2024-12-14 13:37 | RADIOLOGY REPORT ---
Procedure: NM NM KENNEDY SCAN Exam Date: 12/14/2024 11:25 AM Reason for study/Clinical History: chest pain r/o ACS Comparison Study: None Myocardial Perfusion Study with SPECT Technique: The patient received an intravenous injection of 8.4 mCi of technetium-99m sestamibi whil e at rest. After a short delay, SPECT tomographic images of the heart were obtained. The patient th en went to the stress lab where they received an intravenous infusion of 0.[address] andard protocol. 34.4 mCi of technetium-99m sestamibi was injected intravenously immediately after the start of the lexiscan infusion. Gated SPECT tomographic images of the heart were acquired and pr ocessed. 75 mg of Aminophylline was thereafter administered. Findings: No reversible perfusion defect. End diastolic volume: 74 mL End systolic volume: 41 mL The left ventricular ejection fraction is 44 %. (normal greater than 50%) Impression: No reversible defect. The left ventricular ejection fraction is 44 %.
[2024-12-14] MEDS: ondansetron/PF 4mg/2ml inj IV PRN (17:43)
[2024-12-14] MEDS: HYDROmorphone inj. 0.5 MG/0.5 ML DISP.SYRIN IV PRN (18:08)
--- NOTE | 2024-12-14 19:59 | ELECTROCARDIOGRAPH REPORT ---
[facility] Test Date: 2024-12-14 Test Time: 19:57:26 Pat Name: SNEHA GUNTER Department: [facility] 3S Patient ID: [facility]-[id number] Room: [place] [id number] [address] Gender: F Pharmacy Messenger: : 1945 Requested By: BELTRAN MCNEIL Order Number: [id number] Reading MD: Measurements Intervals [place] Rate: 65 P: 17 PA: 167 QRS: 23 QRSD: 85 T: 68 QT: 504 QTc: 525 Interpretive Statements Sinus rhythm Left ventricular hypertrophy Anterior ST elevation, probably due to LVH Prolonged QT interval Please click the below link to view image of tracing.
--- NOTE | 2024-12-14 21:10 | HISTORY AND PHYSICAL ---
History & Physical Providers to CC ~ History of Present Illness Reason for Admit\Complaint: Chest pain noticed 3:00 a.m. History of Present Illness Patient is 79-year-old female with history of chronic COPD, left lower lobe pneumonia, current smoker current cannabis use hypertension chronic pain syndrome. She is here for her concern regarding chest pain which she noticed around 3:00 a.m. chest pain was nonexertional she was sleeping and it woke her up from her sleep. It was sharp nonradiating towards the back but she feels the chest pain is radiating towards right shoulder. Patient does not have any cardiac history it has not noticed any swelling over the ankles or irregular heart rate. Patient is currently using celecoxib gabapentin for her chronic pain issues. Patient denies any other symptoms as per patient she is not allergic to codeine and she gets stomach upset due to that she is willing to try pain medication for pain control. Allergies: Coded Allergies: chlorpromazine HCl (Verified Allergy, Unknown, 09/04/16) codeine (Verified Allergy, Unknown, 09/04/16) Home Medications Home Medications Active Neurontin (Gabapentin) 300 Mg Capsule 1 Cap PO Q8H 30 Days IPRAT-ALBUT 0.5-3(2.5) MG/3 ML nebule (Ipratropium/Albuterol Sulfate) 3 Ml Ampul.neb 3 Ml NEB TID 10 Days Reported Celebrex* (Celecoxib) 100 Mg Capsule 100 Mg PO BID Buspar* (Buspirone HCl) 5 Mg Tablet 1 Tab PO TID Atarax* (Hydroxyzine HCl) 25 Mg Tablet 1 Tab PO Q8H PRN 10 Days Habitrol 21 MG Patch* (Nicotine) 1 Each Patch.td24 1 Patch TOP DAILY 28 Days Vitamin D-3 (Cholecalciferol (Vitamin D3)) 2,000 Unit Tablet 2,000 Units PO HS Quetiapine Fumarate 50 Mg Tablet 50 Mg PO HS NYSTOP powder (Nystatin) 1 Applic Gra 1 Applic TP BID Fosamax (Alendronate Sodium) 70 Mg Tablet 1 Tab PO Q7D 28 Days Imitrex Tab* (Sumatriptan Succinate) 25 Mg Tablet 4 Tab PO PRN PRN give 4 tablets at onset of headache. May repeat in 2 hours as needed for headache. Do not exceed 200mg/day total. Xopenex Hfa (Levalbuterol Tartrate) 15 Gm Hfa.aer.ad 2 Puffs INH Q4HPRN Advair 250-50 Diskus (Salmeterol Xinafoate/Fluticasone) 1 Each Disk.w.dev 1 Puffs INH Q12H 30 Days Gabapentin 100 Mg Capsule 3 Cap PO TID 30 Days Past Medical History Past Medical History 1. chronic obstructive pulmonary disease. 2. h/o left lower lobe pneumonia, community acquired. 3. Current smoker use cigar, cannabis use 4. Hypertension. Past Social History Social History Comment Patient lives by herself able to walk using her walker. ROS ROS Review of system as mentioned above in HPI rest of the review of system unremarkable Exam Vitals: Vital Signs Date Time Temp Pulse Resp B/P (MAP) Pulse Ox O2 Delivery O2 Flow Rate FiO2 12/14/24 18:08 16 12/14/24 17:03 73 12/14/24 15:34 98.7 174/65 (101) 96 0 12/14/24 12:35 Room Air General: GENERAL: The patient is alert, awake, oriented, not in any acute distress. HEENT: Atraumatic, normocephalic. No JVD. LUNGS: Overall decreased breath sounds, but no wheezing or crackles noticed. CARDIOVASCULAR: S1, S2 normal. No murmur. ABDOMEN: Bowel sounds present. Soft, nondistended, nontender. No guarding or rigidity. NEUROLOGIC: Grossly alert, awake, oriented. EXTREMITIES: No pedal edema. PSYCHIATRY: The patient is not confused, cooperated well during physical examination. Diagnostic Data Last Recorded Lab Results: 12/14/24 0654 12/14/24 0654 Diagnostic Data: Laboratory Tests Test 12/14/24 06:54 D-Dimer 0.49 MG/L FEU (0-0.50) D-Dimer Comment Additional Plan Patient is 79-year-old female with history of chronic COPD, left lower lobe pneumonia, current smoker current cannabis use hypertension chronic pain syndrome. Patient does have chronic psychiatric issues for which she follows with Dr. Eric Foote in outpatient setting . She is here for her concern regarding chest pain which she noticed around 3:00 a.m. patient is admitted for acute chest pain rule out coronary artery disease ordered Lexiscan and echocardiogram. Pain medication ordered for pain control. In her allergy list it is mentioned that patient is allergic to codeine but as per patient she is not allergic to codeine and she gets stomach upset due to that she is willing to try pain medication for pain control. We will do home medication reconciliation once updated in electronic record system by nursing staff or pharmacist. Code status discussed with the patient patient wishes to stay full code. Time spent in discussing code status 16 minutes. Patient's current condition is guarded further management depending on response to treatment and results of diagnostic workup. I will continue to follow patient in a.m.. Date of Service: Dec 14, 2024 Billing Provider: MAR ANN MD Common Visit Codes: 63102-PHUMKIN INP/OBS CARE (HIGH) Secondary Visit Codes: 79328-[id number] CARE PLAN 30 MINUTES MAR ANN MD Dec 14, 2024 21:10
[2024-12-14] MEDS: heparin, porcine 5000 units/ml vial SQ SCH (21:18)
[2024-12-15] VITALS (7 sets, daily range): BP systolic 130–193; BP diastolic 67–86; PULSE 63–112; RESP 13–18; TEMP 97.1–97.5; O2SAT 93–97
[2024-12-15] MEDS: metoclopramide 5 mg/ml inj IV ONE (04:13)
[2024-12-15 07:03] LABS: MEAN PLATELET VOLUME 7.7 FL (7.4-10.4); RED CELL DISTRIBUTION WIDTH 16.1 % (11.5-14.5)
[2024-12-15 07:08] LABS: CREATININE 0.62 MG/DL (0.40-0.90); TOTAL CARBON DIOXIDE 29.2 MMOL/L (24-32); eCRCL 67 ML/MIN; eGFR > 90 ML/MIN
[2024-12-15] MEDS: HYDROcodone/acetaminophen 10/325mg tab PO PRN (08:44)
--- NOTE | 2024-12-15 16:39 | CARDIOLOGY REPORT ---
APPROVED REPORT EXAM: Comprehensive 2D, Doppler, and color-flow Echocardiogram. Patient Location: 3025B Blood Pressure: 176/70 mmHg Heart Rate: 60 bpm Indications Chest Pain Shortness of Breath Hypertension NO SHEET [employer]SEM[employer]ER Prevous ECHO: 04/18/19, [facility], EF: 60-65; mod AI/TR; mMR 2D Dimensions LA Diam3.5 cm IVSd 1.3 (0.7-1.1cm) LVDd 4.9 cm PWd 1.2 (0.7-1.1cm) IVSs 1.8 (0.8-1.2cm) LVDs 3.1 (2.5-4.0cm) PWs 0.9 (0.8-1.2cm) LVOT Diameter 1.83 (1.8-2.4cm) LVEF(%) 67.1 (>50%) Ao Asc Diam.2.95 cm IVC 17.59 mmFS (%) 37.3 % SV 76.0 ml CO 4.6 L/min M-Mode Dimensions Left Atrium(MM) 3.26 (2.5-4.0cm) Aortic Root 2.89 (2.2-3.7cm) Aortic Cusp Exc 1.50 (1.5-2.0cm) Aortic Valve AoV Peak Jasvir. 205.9 cm/s AoV VTI 32.6 cm AO Peak GR. 17.0 mmHg AO Mean GR. 8 mmHg LVOT VTI 32.01 cm LVOT Peak Jasvir. 159.8 cm/s AMINATA(VTI)/BSA 2.57 cm2/m2 AMINATA (VTI) 2.57 cm2 AI P 1/2 Time 440 ms Mitral Valve MV E Velocity 92.7 cm/s MV Peak Gr. 6 mmHg MV DECEL TIME 204 ms MV A Velocity 102.1 cm/s MV PHT 60 ms E/A Ratio 0.9 MVA (PHT) 3.67 cm2 MV KOrh551.2 cm/s TDI Lateral E' P. V9.30 cm/s E/Lateral E' 10.0 Tricuspid Valve TR P. Velocity 315 cm/s RAP ESTIMATE 10 mmHg TR Peak Gr. 40 mmHg RVSP 50 mmHg LEFT VENTRICLE Normal LV size and function. Mild concentric hypertrophy. Overall LVEF is 65-70%. RIGHT VENTRICLE RV is normal size and function. Estimated PA systolic pressure of 50 mm of mercury ATRIA The left atrium size is normal. AORTIC VALVE Trileaflet AV appears mildly sclerotic without stenosis. Moderate insufficiency. MITRAL VALVE Mild mitral annular calcification without stenosis. Mild to moderate regurgitation. TRICUSPID VALVE The tricuspid valve is normal in structure with moderate regurgitation. PULMONIC VALVE The pulmonary valve is normal in structure with trace insufficiency. GREAT VESSELS The aortic root is normal in size. The ascending aorta is normal in size. The IVC is normal in size a nd collapses >50% with inspiration. PERICARDIUM Normal pericardium. No effusion. Other Information Study Quality: Adequate Conclusion Overall LVEF is 65-70%. Normal LV size and function. Mild concentric hypertrophy. RV is normal size and function. Estimated PA systolic pressure of 50 mm of mercury Trileaflet AV appears mildly sclerotic without stenosis. Moderate insufficiency. Mild mitral annular calcification without stenosis. Mild to moderate regurgitation. The tricuspid valve is normal in structure with moderate regurgitation. The pulmonary valve is normal in structure with trace insufficiency. Normal pericardium. No effusion.
--- NOTE | 2024-12-15 20:14 | PROGRESS NOTE ---
Daily Progress Note Providers to CC ~ Antibiotic Timeout Antibiotic Ordered?: No Subjective Patient was seen in her room she wanted to get something stronger for pain and showed pain medication seeking behavior. She denied any worsening of her chest pain as compared to yesterday. She had echocardiogram and Lexiscan done today Objective Vital Signs Date Time Temp Pulse Resp B/P (MAP) Pulse Ox O2 Delivery O2 Flow Rate FiO2 12/15/24 17:29 103 12/15/24 15:49 18 12/15/24 15:00 97.3 193/83 (119) 93 Room Air 12/14/24 15:34 0 Result Diagram: 12/15/24 0552 12/15/24 0552 GENERAL: The patient is alert, awake, oriented, not in any acute distress. HEENT: Atraumatic, normocephalic. No JVD. LUNGS: Overall decreased breath sounds, but no wheezing or crackles noticed. CARDIOVASCULAR: S1, S2 normal. No murmur. ABDOMEN: Bowel sounds present. Soft, nondistended, nontender. No guarding or rigidity. NEUROLOGIC: Grossly alert, awake, oriented. EXTREMITIES: No pedal edema. PSYCHIATRY: The patient is not confused, cooperated during physical examination. Coagulation Studies Laboratory Tests Test 12/14/24 06:54 D-Dimer 0.49 MG/L FEU (0-0.50) D-Dimer Comment Problem\Assessment\Plan Patient is 79-year-old female with history of chronic COPD, left lower lobe pneumonia, current smoker current cannabis use hypertension chronic pain syndrome. Patient does have chronic psychiatric issues for which she follows with Dr. Eric Foote in outpatient setting . She is here for her concern regarding chest pain which she noticed around 3:00 a.m. patient is admitted for acute chest pain rule out coronary artery disease ordered Lexiscan and echocardiogram. Pain medication ordered for pain control. In her allergy list it is mentioned that patient is allergic to codeine but as per patient she is not allergic to codeine and she gets stomach upset due to that she is willing to try pain medication for pain control. She had echocardiogram and Lexiscan done today Chronic COPD on prednisone and as needed breathing treatment Chronic headache amiodarone started today chronic pain syndrome-patient is currently on Dilaudid 0.2 and 0.5 mg IV Q 4 hours which was started last night home medication reconciliation once updated in electronic record system by nursing staff or pharmacist. Chronic smoker on nicotine patch Code status discussed with the patient patient wishes to stay full code. Patient's current condition is guarded further management depending on response to treatment and results of diagnostic workup. I will continue to follow patient in a.m.. Date of Service: Dec 15, 2024 Billing Provider: MAR ANN MD Common Visit Codes: [id number] INP/OBS CARE(HIGH) MAR ANN MD Dec 15, 2024 20:13
[2024-12-16 03:59] VITALS: BP 161/68; PULSE 67; RESP 18; TEMP 97.6; O2SAT 96
[2024-12-16 05:36] LABS: MEAN PLATELET VOLUME 7.7 FL (7.4-10.4); RED CELL DISTRIBUTION WIDTH 15.6 % (11.5-14.5)
[2024-12-16 06:00] VITALS: BP 119/71; PULSE 61; RESP 16; TEMP 97; O2SAT 94
[2024-12-16 06:08] LABS: CREATININE 0.59 MG/DL (0.40-0.90); TOTAL CARBON DIOXIDE 22.7 MMOL/L (24-32); eCRCL 71 ML/MIN; eGFR > 90 ML/MIN
[2024-12-16 10:00] VITALS: BP 160/60; PULSE 66; RESP 12; TEMP 97.3; O2SAT 95
[2024-12-16] MEDS ORDERED: PANT40TA54 PO (10:01)
[2024-12-16] MEDS ORDERED: NICO-631 TD (10:01)
[2024-12-16 13:03] VITALS: BP_SYST 168; PULSE 66
[2024-12-16] MEDS: hydrALAZINE 20mg/ml inj. IV ONE (13:03)
--- NOTE | 2024-12-16 16:30 | DISCHARGE SUMMARY ---
Discharge Summary Providers to CC ~ Discharge Summary Admission Diagnosis: chest pain r/o ACS Hospital Course DATE OF ADMISSION: December 14, 2024 DATE OF DISCHARGE: December 16, 2024 CBC testing done on December 16, 2024 WBC 11.6 hemoglobin 9.4 hematocrit 28.4 platelet count 256. Serum chemistry done on December 16, 2024 sodium 139 potassium 3.6 creatinine 0.59 GFR greater than 90 normal liver enzymes cardiac markers normal proBNP 1336 ECHOCARDIOGRAM-Conclusion Overall LVEF is 65-70%. Normal LV size and function. Mild concentric hypertrophy. RV is normal size and function. Estimated PA systolic pressure of 50 mm of mercury Trileaflet AV appears mildly sclerotic without stenosis. Moderate insufficiency. Mild mitral annular calcification without stenosis. Mild to moderate regurgitation. The tricuspid valve is normal in structure with moderate regurgitation. The pulmonary valve is normal in structure with trace insufficiency. Normal pericardium. No effusion. : NM KENNEDY SCAN-Impression: No reversible defect. The left ventricular ejection fraction is 44 %. Discharge Diagnosis\Comment: Chest pain acute coronary syndrome ruled out Chronic COPD Chronic headache chronic pain syndrome Chronic smoker on nicotine patch Operations\Procedures: None Consultants: None Complications: None Condition on DC: Stable New Medications: Nicotine 14 MG Patch* (Habitrol 14 MG Patch*) 1 Each Patch.td24 1 PATCH TD DAILY for 30 Days, #30 PATCH Pantoprazole Sodium (Pantoprazole Sodium) 40 Mg Tablet.dr 40 MG PO BKF for 30 Days, #30 TAB.SR Continued Medications: Alendronate Sodium (Fosamax) 70 Mg Tablet 1 TAB PO Q7D for 28 Days, #4 TAB Buspirone Hcl* (Buspar*) 5 Mg Tablet 1 TAB PO TID, TAB Celecoxib* (Celebrex*) 100 Mg Capsule 100 MG PO BID, CAP Cholecalciferol (Vitamin D3) (Vitamin D-3) 2,000 Unit Tablet 2000 UNITS PO HS Fluticasone/Salmeterol (Advair 250-50 Diskus) 1 Each Disk.w.dev 1 PUFFS INH Q12H for 30 Days, #1 INHALER Gabapentin (Gabapentin) 100 Mg Capsule 3 CAP PO TID for 30 Days, #90 CAP Gabapentin (Neurontin) 300 Mg Capsule 1 CAP PO Q8H for 30 Days, #90 CAP Hydroxyzine Hcl* (Atarax*) 25 Mg Tablet 1 TAB PO Q8H PRN for anxiety for 10 Days, #30 TAB Ipratropium/Albuterol Sulfate (IPRAT-ALBUT 0.5-3(2.5) MG/3 ML nebule) 3 Ml Ampul.neb 3 ML NEB TID for 10 Days, ML Levalbuterol Tartrate (Xopenex Hfa) 15 Gm Hfa.aer.ad 2 PUFFS INH Q4HPRN, #15 GM Nicotine 21 MG Patch* (Habitrol 21 MG Patch*) 1 Each Patch.td24 1 PATCH TOP DAILY for 28 Days, #28 PATCH Nystatin (NYSTOP powder) 1 Applic Gra 1 APPLIC TP BID, GM Quetiapine Fumarate (Quetiapine Fumarate) 50 Mg Tablet 50 MG PO HS Sumatriptan Succinate* (Imitrex Tab*) 25 Mg Tablet 4 TAB PO PRN PRN for headache, TAB give 4 tablets at onset of headache. May repeat in 2 hours as needed for headache. Do not exceed 200mg/day total. Discharge Summary: Patient is 79-year-old female with history of chronic COPD, left lower lobe pneumonia, current smoker current cannabis use hypertension chronic pain syndrome. Patient does have chronic psychiatric issues for which she follows with Dr. Eric Foote in outpatient setting . She is here for her concern regarding chest pain which she noticed around 3:00 a.m. patient is admitted for acute chest pain rule out coronary artery disease ordered Lexiscan and echocardiogram. Pain medication ordered for pain control. In her allergy list it is mentioned that patient is allergic to codeine but as per patient she is not allergic to codeine and she gets stomach upset due to that she is willing to try pain medication for pain control. She had echocardiogram and Lexiscan done Chronic COPD on prednisone and as needed breathing treatment Chronic headache imetrex started chronic pain syndrome-patient is currently on Dilaudid 0.2 and 0.5 mg IV Q 4 hours which was started last night. She had echocardiogram and Lexiscan done which was unremarkable and ruled out acute coronary syndrome home medication reconciliation once updated in electronic record system by nursing staff or pharmacist. Chronic smoker on nicotine patch Patient is congruent condition is stable. She has been afebrile and getting discharged home in stable condition. Patient is seen and examined on the day of discharge discharge instructions provided to the patient. All questions and concerns discussed with the patient who is alert awake GENERAL: The patient is alert, awake, oriented, not in any acute distress. HEENT: Atraumatic, normocephalic. No JVD. LUNGS: Overall decreased breath sounds, but no wheezing or crackles noticed. CARDIOVASCULAR: S1, S2 normal. No murmur. ABDOMEN: Bowel sounds present. Soft, nondistended, nontender. No guarding or rigidity. NEUROLOGIC: Grossly alert, awake, oriented. EXTREMITIES: No pedal edema. PSYCHIATRY: The patient is not confused, cooperated during physical examination. *Problems/Diagnosis: (1) Acute chest pain Status: Acute Total Time Spent on D/C: > 30 Minutes Date of Service: Dec 16, 2024 Billing Provider: MAR ANN MD Common Visit Codes: 86372-PFF/OBS DISCH DAY >30min MAR ANN MD Dec 16, 2024 16:29
== END 2024-12-16 14:03 | disposition home or self-care (01) | DRG 313 ==
LOC: ER 05:25 → ED HOLD 08:35 → PCU 3S 17:05
PROVIDERS: ADMIT Internal Medicine; ATTEND Internal Medicine
PROC: 4A02XM4 Measurement of Cardiac Total Activity, External Approach (ICD-10-PCS; principal; 2024-12-14)
PROC: 3E033HZ Introduction of Radioactive Substance into Peripheral Vein, Percutaneous Approach (ICD-10-PCS; 2024-12-14)
DX: R07.89 Other chest pain (principal); F17.210 Nicotine dependence, cigarettes, uncomplicated; J44.9 Chronic obstructive pulmonary disease, unspecified; F41.9 Anxiety disorder, unspecified; F32.A Depression, unspecified; I25.10 Atherosclerotic heart disease of native coronary artery without angina pectoris; I10 Essential (primary) hypertension; G89.4 Chronic pain syndrome; Z88.5 Allergy status to narcotic agent; Z85.43 Personal history of malignant neoplasm of ovary; Z88.8 Allergy status to other drugs, medicaments and biological substances
CPT/HCPCS: 36415; 71045; 78452; 80048; 80053; 82948; 83880; 84484; 85025; 85379; 87081; 93005; 93017; 93306; 99285; A9500; G0378; J0280; J0360; J1171; J1644; J2270; J2405; J2765; J2785; J3010; J7030; J7512